=== PATIENT | male | born 2000 | race Hispanic/Latino ===

== ENCOUNTER 2021-11-01 01:09 | Emergency (ER) | payer OTHER ==
[2021-11-01 04:30] VITALS: BP 137/69
== END 2021-11-01 05:34 | disposition home or self-care (01) ==
LOC: M ED 01:09 → EDBD 01:09 → M ED 05:34
DX: T68.XXXA Hypothermia, initial encounter (principal); X31.XXXA Exposure to excessive natural cold, initial encounter; Y92.138 Other place on military base as the place of occurrence of the external cause; Y99.1 Military activity; F17.200 Nicotine dependence, unspecified, uncomplicated

== ENCOUNTER 2024-01-02 15:49 | Emergency (ER) | payer OTHER ==
[~2024-01-02] VITALS: Ht 165.1 cm; Wt 76.6 kg
[2024-01-02 15:50] VITALS: BP 143/67; TEMP 97.5; O2SAT 97
== END 2024-01-02 17:31 | disposition home or self-care (01) ==
LOC: M ED 15:49
DX: S63.630A Sprain of interphalangeal joint of right index finger, initial encounter (principal); Y92.9 Unspecified place or not applicable; Y93.9 Activity, unspecified; Y99.9 Unspecified external cause status